=== PATIENT | female | born 1940 | race Caucasian/White ===

== ENCOUNTER → 2017-01-02 | Outpatient (CLI) | payer OTHER ==
[~2017-01-02] MED LIST: ACET-1138 PO; ALBINS INH; ASPI81TA28 PO; ATOR-22 PO; BIOF500T PO; CALC-354 PO; CITA20TA9 PO; CLB/200 PO; DRGTP25 TOP; FRRS300 PO; HYDR-3983 PO; INSDGIPEN SC; METF-384 PO; METO-551 PO; MULT-845 PO; NRN100 PO; NYSP EXT; OMEG10007 PO; PANT40TA PO; PRD5 PO; PRED20TA2 PO; ROPI1TAB PO; RXC5 PO; SENN8.6T7 PO; SPIR1TAB46 PO; SULF800T23 PO; TORS20TA2 PO; ZNTT/150 PO
--- NOTE | 2017-01-02 13:22 | MAMMOGRAPHY REPORT ---
BILATERAL DIGITAL SCREENING MAMMOGRAM WITH CAD: 01/02/2017 TECHNIQUE: Current study was also evaluated with a Computer Aided Detection (CAD) system. Bilateral CC and MLO views were obtained. COMPARISON: Comparison is made to exams dated: 12/28/2015 mammogram, 12/22/2014 mammogram, 10/03/2011 ma mmogram - [facility], 09/29/2008, 12/25/2005 mammogram, and 09/19/2000 mammogram - [facility]. BREAST COMPOSITION: There are scattered areas of fibroglandular density in both breasts. FINDINGS: No suspicious masses, calcifications, or areas of architectural distortion are noted in ei ther breast. There has been no significant interval change compared to prior exams. Scattered bilate ral benign-appearing calcifications are again noted. IMPRESSION: ACR BI-RADS CATEGORY 2: BENIGN There is no mammographic evidence of malignancy. A 1 year screening mammogram is recommended. The pa tient will receive written notification of the results. Approximately 10% of breast cancers are not detected with mammography. A negative mammographic report should not delay biopsy if a clinically suggestive mass is present. Belgica Weeks M.D. ah/:01/02/2017 12:28:30 Attending Technologist: Heather Gannon RT(R)(M), [facility] [employer] Developer: Sharron Nogueira RT(R)(M), [facility] letter sent: Normal 1/2 BI-RADS Code: ACR BI-RADS Category 2: Benign
== END | disposition home or self-care (01) ==
LOC: C.MAMM 10:38
PROVIDERS: ATTEND Internal Medicine
DX: Z12.31 Encounter for screening mammogram for malignant neoplasm of breast (principal)

== ENCOUNTER → 2017-03-06 | Outpatient (CLI) | payer OTHER ==
[~2017-03-06] MED LIST changes: -DRGTP25 TOP; -METF-384 PO; -NRN100 PO; -PRED20TA2 PO; -SPIR1TAB46 PO; -SULF800T23 PO; -TORS20TA2 PO
== END | disposition home or self-care (01) ==
LOC: C.LABSPEC 16:59
PROVIDERS: ATTEND Physician Assistant Medical
DX: L97.919 Non-pressure chronic ulcer of unspecified part of right lower leg with unspecified severity (principal)

== ENCOUNTER → 2017-05-28 | Outpatient (CLI) | payer OTHER ==
[~2017-05-28] MED LIST changes: -ASPI81TA28 PO; +CIPR1TAB11 PO; +DRGTP25 TOP; -FRRS300 PO; +METF-384 PO; +NRN100 PO; -PRD5 PO; +PRED10TA PO; +SPIR1TAB46 PO; +TORS20TA2 PO; -ZNTT/150 PO
[2017-05-28 14:30] LABS: BASO % 0.3 %; BASO ABS # 0.03 K/uL (0-0.2); COMPLETE YES; EOS % 0.3 %; HEMATOCRIT 36.5 % (37-47); LYMPH % 5.2 %; MEAN CELL VOLUME 94.6 fL (80-100); MEAN CORPUSCULAR HEMOGLOBIN 32.1 pg (25-34); MEAN PLATELET VOLUME 9.9 fL (7.4-10.4); MONO % 3.1 %; NEUT % 89.1 %; PLATELET COUNT 209 K/uL (130-400); RED BLOOD COUNT 3.86 M/uL (4.2-5.4); WHITE BLOOD COUNT 11.46 K/uL (4.8-10.8)
[2017-05-28 14:53] LABS: ALT/SGPT 45 U/L (12-78); AST/SGOT 24 U/L (15-37); BLOOD UREA NITROGEN 34 mg/dl (7-18); BUN/CREATININE RATIO 24.7 (10-20); CALCIUM 8.9 mg/dl (8.5-10.1); CARBON DIOXIDE 35 mmol/L (21-32); CHLORIDE 88 mmol/L (98-107); CREATININE 1.37 mg/dl (0.60-1.20); GLUCOSE 319 mg/dl (70-99); POTASSIUM 3.5 mmol/L (3.5-5.1); SODIUM 131 mmol/L (136-145)
[2017-05-28 14:56] LABS: ALB/GLOB RATIO 1.1 (0.9-2); CHOLESTEROL 153 mg/dl (0-200); TRIGLYCERIDES 103 mg/dl (0-150); VERY LOW DENSITY LIPOPROT CALC 21 mg/dl
[2017-05-28 15:04] LABS: ALKALINE PHOSPHATASE 77 U/L (45-117); BETA-HYDROXYBUTYRATE 3.16 mg/dL (0.2-2.81); CHOLESTEROL/HDL RATIO 1.7; HDL CHOLESTEROL 89 mg/dl; LDL CHOLESTEROL CALCULATED 43 mg/dl; THYROID STIMULATING HORMONE 0.555 uIu/ml (0.300-4.500)
[2017-05-29 06:58] LABS: ESTIMATED AVERAGE GLUCOSE 258 mg/dl; HA1C FLAG Normal (Normal)
== END | disposition home or self-care (01) ==
LOC: C.LAB 12:24
PROVIDERS: ATTEND Physician Assistant
DX: M81.0 Age-related osteoporosis without current pathological fracture (principal); I10 Essential (primary) hypertension; E78.5 Hyperlipidemia, unspecified; E11.9 Type 2 diabetes mellitus without complications; R60.9 Edema, unspecified; M62.81 Muscle weakness (generalized)

== ENCOUNTER → 2017-06-08 | Outpatient (CLI) | payer OTHER ==
[~2017-06-08] MED LIST changes: -CIPR1TAB11 PO; +GLC500 PO; +HYDR-5688 PO; +INSDGI SC; +INSU100I2 SQ; +LORA-741 PO; +OXGN; +PRD20 PO; +PRLSR20 PO
[2017-06-08 09:56] LABS: BLOOD UREA NITROGEN 18 mg/dl (7-18); CALCIUM 8.6 mg/dl (8.5-10.1); CARBON DIOXIDE 36 mmol/L (21-32); CREATININE 0.87 mg/dl (0.60-1.20); GLUCOSE 125 mg/dl (70-99); POTASSIUM 3.4 mmol/L (3.5-5.1); SODIUM 138 mmol/L (136-145)
== END | disposition home or self-care (01) ==
LOC: C.LAB 08:22
PROVIDERS: ATTEND Internal Medicine
DX: M81.0 Age-related osteoporosis without current pathological fracture (principal); Z79.899 Other long term (current) drug therapy

== ENCOUNTER → 2017-08-14 | Outpatient (CLI) | payer OTHER ==
[~2017-08-14] MED LIST changes: -ACET-1138 PO; +ANSHCCR PR; -CLB/200 PO; +DOCU100C31 PO; -GLC500 PO; -HYDR-3983 PO; -INSDGIPEN SC; -METF-384 PO; -PANT40TA PO; -PRED10TA PO; -PRLSR20 PO; +PRT/20 PO; -RXC5 PO; -SENN8.6T7 PO; -TORS20TA2 PO
--- NOTE | 2017-08-14 14:59 | DIAGNOSTIC IMAGING REPORT ---
THORACIC SPINE 3 VIEWS ROUTINE, L-SPINE MIN 4 VIEWS ROUTINE HISTORY: 77 years-old Female G89.4 Chronic pain [id number] Fall chronic mid and low back pain COMPARISON: Thoracic spine MR 05/15/2016, fluoroscopic images of the spine 05/16/2016 TECHNIQUE: 3 views of the thoracic spine and 5 views of the lumbar spine FINDINGS: THORACIC: Prior posterior decompression with interbody beverley and screw fusion is noted involving the thoracic spine extending from the T8-S1 levels. No evidence of hardware fracture or loosening. Chronic compression deformity of the T11 vertebral body appears unchanged. The bones appear moderately demineralized with severe multilevel intervertebral disc space narrowing and endplate spurring. The upper thoracic segments are not well-seen secondary to positioning. Within the limitations of the study, no acute fracture or subluxation identified. Atherosclerosis of the aorta. The heart appears enlarged. Partially imaged retrocardiac left basilar opacities. LUMBAR: Extensive posterior beverley and screw fusion hardware is again noted extending from the thoracic spine into the S1 level with bilateral iliac screws. No evidence of hardware fracture or loosening identified. Mild levoscoliosis of the lumbar spine. The imaged sacrum and iliac bones also appear to be intact. IMPRESSION: 1. No acute fracture or subluxation. 2. Extensive posterior beverley and screw fusion of the thoracolumbar spine redemonstrated extending from T8-S1 with bilateral iliac screw fusion. No evidence of hardware fracture or loosening. The above report was generated using voice recognition software. It may contain grammatical, syntax or spelling errors. Electronically signed by: Joseluis Walsh M.D. 08/14/2017 2:57 PM Dictated Date/Time: 08/14/2017 2:50 PM
== END | disposition home or self-care (01) ==
LOC: C.RADBC 14:16
PROVIDERS: ATTEND Internal Medicine
DX: G89.4 Chronic pain syndrome (principal); W19.XXXA Unspecified fall, initial encounter; Z98.1 Arthrodesis status